=== PATIENT | female | born 1995 | race Caucasian/White ===

== ENCOUNTER → 2018-03-10 | Outpatient (CLI) | payer OTHER | LOC: M RAD 14:02 | DX: O34.82 Maternal care for other abnormalities of pelvic organs, second trimester (principal) | CPT/HCPCS: 72195 ==

== ENCOUNTER 2018-07-14 16:05 | Inpatient (IN) | payer OTHER ==
[~2018-07-14] VITALS: Ht 167.6 cm; Wt 71.9 kg
[2018-07-14] MEDS ORDERED: ZOLO50TA PO (16:29)
[2018-07-14] MEDS ORDERED: PRENTAB9 PO (16:29)
[2018-07-14] MEDS ORDERED: APAP500T10 PO (16:29)
[2018-07-14] MEDS ORDERED: LR 1,000 ML IV SCH (19:40)
[2018-07-14] MEDS: LR 1,000 ML IV SCH ×2 (19:40→22:47)
[2018-07-14] MEDS ORDERED: LACTATED RINGER'S 1000 ML IV STA (19:40)
[2018-07-14] MEDS ORDERED: OXYTOCIN DRIP 30 UNITS in APPROPRIATE DILUENT 1 EA IV SCH (19:45)
--- NOTE | 2018-07-14 20:05 | HPEPDOC ---
Obstetrical History & Physical General Date of Admission Jul 14, 2018 at 19:30 History of Present Illness 22 y/o at 39+6 with 2days of off/on significant bleedin g. Last night had several episodes of bleeding heavy enough to change sheets, have a towel under her. No LOF. Some irrerg ctx's. Checked 2 days ago and this afternoon and was 1 cm dilated. Pos FM. Preg c/b Left ovarian cyst, 14 cm, saw ONC, they rec'd waiting to address a few months after delivery unless , at which time if possible could be removed depending on exam and location, etc. Also stable depr/anxiety on Zoloft and has a counselor. Chief Complaint: Vaginal Bleeding Information Provided By: Patient Care Care: Good Care Dating Final EDC by: LMP, 1st trimester (US) Past Medical History Past Obstetrical History : Past Obstetrical History: [employer] History: No pertinent history Past Medical History Medical History Depression /anxiety GERD Mild gastroparesis sa a teen Surgical History: Other ([place] 2011) Family History Significant Family History: No pertinent family hx Social History Marital Status: Family situation: Spouse/partner home Psychosocial History: No pertinent psych hx * Smoker: non-smoker Alcohol: Denies Drugs: denies Abuse Violence Screening Have you been hit/kicked/slapp: No Have you been sexually assault: No Imunizations Tdap status: current Influenza Status: current Allergies Coded Allergies: No Known Allergies (Unverified , 07/14/18) Medications Scheduled Multivitamins/ ( 27-0.8 mg) 1 Tab Tab, 1 TAB PO DAILY Sertraline Hcl (Zoloft) 50 Mg Tab, 1 TAB PO DAILY Scheduled PRN Acetaminophen (APAP Extra Strength) 500 Mg Tab, 1,000 MG PO PRN PRN for CRAMPS Physical Examination Physical Examination GENERAL: Alert and oriented times three. ABDOMEN: Gravid and non-tender to touch. FETUS: Is vertex (VTX) by sterile vaginal examination (SVE), 3-/-2 EXTREMITIES: No edema. Laboratory Data 24H LABS Laboratory Tests 2 07/14/18 19:32: Serology Scanned Report Hepatitis B Testing Urine Culture: No Growth Pertinent Laboratoy Data Blood Type: O+ RBC Antibody Screen: Negative HIV: Negative Hepatitis B: Negative Hepatitis C: Unknown Rapid Plasma Reagin: Nonreactive Rubella: Immune Varicella: Immune Chlamydia/Gonorrhea: Negative Group B Streptococcus: Negative Glucose Tolerance Test: 88 Anatomy Ultrasound Placenta Location: Posterior Normal Anatomy: Yes Placenta Previa: No Assessment Variability: Moderate Accelerations: Positive Decelerations: None Tocometer Contractions: Yes Frequency: irregular Duration: greater than 60 seconds Strength: palpated as mild Assessment/Plan Assessment Favorable cx and VB for 2-3 days. Has changed over 3-4 hours from 1 cm to 3-4 cm. With her Hx of VB and 39+6, I rec augmentation and Dr Ulrich who is taking over care agrees. Plan Admit and orient. Order Clerk and consent. Diet: clears Group B Streptococcus (GBS) neg Labs and intravenous (IV) per unit protocol. Counseled on Pitocin and induction of labor (IOL). Lactated Ringers (LR): Bolus 1000 mL prior to epidural, then at 125 mL/hr. Anticipate normal spontaneous delivery () C-S as appropriate. Cystectomy/oophorectomy with likely based on findings. Sessions MD GARCIA,ROEL Nugent MD Jul 14, 2018 20:05
[2018-07-14 20:12] LABS: HEMATOCRIT 34.6 % (36.0-47.0); HEMOGLOBIN 11.2 g/dl (12.0-15.5); MEAN CORPUSCULAR HEMOGLOBIN 29.2 pg (27.0-33.0); MEAN CORPUSCULAR HGB CONC 32.4 g/dl (32.0-36.5); MEAN CORPUSCULAR VOLUME 90.3 fl (80.0-96.0); PLATELET COUNT, AUTOMATED 204 10^3/uL (150-450); RED BLOOD COUNT 3.83 10^6/uL (4.00-5.40); WHITE BLOOD COUNT 13.4 10^3/uL (4.0-10.0)
[2018-07-14 20:32] VITALS: BP 122/69
[2018-07-14 21:02] VITALS: BP 122/75
[2018-07-14 22:02] VITALS: BP 111/55
[2018-07-14 22:32] VITALS: BP 101/60
[2018-07-14 23:02] VITALS: BP 108/66
[2018-07-14 23:32] VITALS: BP 116/62
[2018-07-15] VITALS (47 sets, daily range): BP systolic 95–157; BP diastolic 52–84
[2018-07-15] MEDS ORDERED: PROMETHAZINE INJ 25 MG/ML VIAL (J2550) IV ONE (01:45)
[2018-07-15] MEDS ORDERED: BUTORPHANOL 2 MG/ML INJ (J0595) IV ONE (01:45)
[2018-07-15] MEDS ORDERED: FENTANYL 2MCG/ML ROPIVACAINE 0.2% IN 0.9% NACL 100ML IVBAG As Ordered ONE (03:17)
[2018-07-15] MEDS ORDERED: ePHEDrine SULFATE 25 MG/5 ML(5MG/ML) SYRINGE IV PRN (04:05)
[2018-07-15] MEDS ORDERED: EPIDURAL COMMENT XX SCH (04:05)
[2018-07-15] MEDS ORDERED: LACTATED RINGER'S 1000 ML IV PRN (04:05)
[2018-07-15] MEDS ORDERED: NALOXONE INJ 0.4 MG/1 ML VIAL (J2310) IV PRN (04:05)
[2018-07-15] MEDS ORDERED: ONDANSETRON 4MG/2ML VIAL (J2405) IV PRN ×2 (04:05→10:15)
[2018-07-15] MEDS ORDERED: EPIDURAL/PCA KEYS XX PRN (04:05)
[2018-07-15] MEDS ORDERED: FENTANYL/ROPIVACAINE/NACL BAG 100 ML EPIDURAL SCH (04:05)
[2018-07-15] MEDS ORDERED: diphenhydrAMINE INJ 50MG/ML VIAL (J1200) IV PRN (04:05)
[2018-07-15] MEDS ORDERED: REFRIGERATOR IV KEYS XX PRN (04:05)
--- NOTE | 2018-07-15 06:44 | IPNPDOC ---
Text Note Date of Service The patient was seen on 07/15/18. NOTE Intrapartum Note Ermelinda is a 22yo with SIUP at 40w0d undergoing augmentation of labor for some significant likely cervical bleeding, she made change on her own from to yesterday and then pitocin was started. Pitocin was titrated up overnight, pt received one dose of stadol for pain control, and then later she finally received an epidural. She is currently comfortable and doing well. Vitals wnl, afebrile SCE: 9/C/-1, AROM performed with clear fluid noted- well tolerated, bleeding noted prior on towel normal in amount for "show" Cat I-II FHRT for periods of min-mod richard, +accels, -decels [place]: ctx q1-2min Will continue to closely monitor Continue pitocin Will plan to recheck in 1-2hr or earlier as indicated Safe to proceed Dr. Nannette Ulrich MD VS,Saud, I+O VS, Saud, I+O Laboratory Tests 07/14/18 19:49 Red Blood Count 3.83 L, Mean Corpuscular Volume 90.3, Mean Corpuscular Hemoglobin 29.2, Mean Corpuscular Hemoglobin Concent 32.4, Red Cell Distribution Width 13.8 Vital Signs Date Time Temp Pulse Resp B/P (MAP) Pulse Ox O2 Delivery O2 Flow Rate FiO2 07/15/18 04:53 70 101/56 (71) 07/15/18 04:13 97.0 07/15/18 01:48 18 Nannette Ulrich MD Jul 15, 2018 06:44
--- NOTE | 2018-07-15 07:44 | IPNPDOC ---
Text Note Date of Service The patient was seen on 07/15/18. NOTE Acceptance of care. Ermelinda is a 22 yo at 40+0 weeks who was admitted yesterday evening for induction / augmentation of labor for periods of significant vaginal bleeding over the last 2-3 days. Cervix was favorable on admission and she was started on pitocin. AROM of clear fluid was done at ~0630 this AM. She has progressed well to 9/C/-1 as of that exam by Dr. Ulrich. FHR mostly Cat I with moderate variability, +accels. Some Periods of Cat II due to minimal variability, but no decels. Overall reassuring tracing. Ermelinda is progressing well. Her is complicated by a large, ~14cm ovarian mass on the left side. Should she require delivery for any reason I would consider cystectomy / oophorectomy at that time if feasible and safe. Will recheck in 1-2 hours or sooner as needed. All patient questions answered. DO Pranav VS,Saud, I+O VS, Saud, I+O Laboratory Tests 07/14/18 19:49 Red Blood Count 3.83 L, Mean Corpuscular Volume 90.3, Mean Corpuscular Hemoglobin 29.2, Mean Corpuscular Hemoglobin Concent 32.4, Red Cell Distribution Width 13.8 Vital Signs Date Time Temp Pulse Resp B/P (MAP) Pulse Ox O2 Delivery O2 Flow Rate FiO2 07/15/18 06:39 97.6 77 106/70 (82) 07/15/18 01:48 18 HALEIGH TURNER DO Jul 15, 2018 07:43
[2018-07-15] MEDS: LR 1,000 ML IV SCH (08:47)
[2018-07-15] MEDS ORDERED: OXYTOCIN DRIP 30 UNITS in APPROPRIATE DILUENT 1 EA IV SCH (10:06)
[2018-07-15] MEDS ORDERED: ACETAMINOPHEN 500 MG TAB PO PRN (10:15)
[2018-07-15] MEDS ORDERED: RHOGAM 300 MCG (1500 IU) INJ (J2790) IM SCH (10:15)
[2018-07-15] MEDS ORDERED: MEASLES,MUMPS,RUBELLA VACCINE INJ (MMR-II) (90707) SC SCH (10:15)
[2018-07-15] MEDS ORDERED: DOCUSATE SODIUM 100 MG CAP PO PRN (10:15)
[2018-07-15] MEDS ORDERED: DIBUCAINE 1% OINTMENT 30GM TOP PRN (10:15)
--- NOTE | 2018-07-15 10:24 | DNPDOC ---
[facility] Delivery Note Delivery Note DATE OF DELIVERY: 15Jul2018 at ~0930 PREDELIVERY DIAGNOSIS: 40+0 weeks' gestation and labor. POST DELIVERY DIAGNOSIS: Delivered, calcified placenta and partial placental abruption PROCEDURE: Spontaneous vaginal delivery METALIZING MACHINE OPERATOR: Dr. Rock ANESTHESIA: Neuraxial. ESTIMATED BLOOD LOSS: 300 mL. FINDINGS: 7 pound 13 ounce male , Score 9/9, nuchal cord times X1. DELIVERY SUMMARY: Patient was C/C/+2 and started pushing. She pushed well. The bed was broken down and she was prepped for delivery. The delivered in DAMEON position with restitution to ROT. The left anterior shoulder delivered with gentle guidance followed easily by the remainder of the body. There was a loose nuchal cord that was delivered through and reduced manually. The infant was dried and stimulated on the field and a bulb suction was used. The had a vigorous cry and was placed on the maternal abdomen. 3rd stage was completed with gentle traction on the cord and it was productive of an intact placenta. There was significant trailing placental membranes. The placenta also appeared calcified and with an area consistent with a 25% abruption. A uterine sweep was performed in order to confirm all trailing membranes were removed along with any placental fragments. The uterus firmed with massage and pitocin was administe red IV bolus. Inspection of the vagina, perineum, cervix, and labia revealed a midline 2nd degree laceration and bilateral labial lacerations. These were repaired with 3-0 vicryl suture in the usual fashion. There was excellent cosmesis and hemostasis after the repair. A bedside TAUS was performed and the uterine stripe was appropriately thick at 1.8cm at the thickest portion and there was no evidence of retained products. The fundus was palpated again and was firm. Sponge, instrument, and needle counts were correct X2. Mother stable when I left the room. DO JOHNNY Rock CHRISTOPHER J. DO Jul 15, 2018 10:24
[2018-07-16 05:59] VITALS: BP 104/51
--- NOTE | 2018-07-16 07:20 | IPNPDOC ---
Progress Note Date of Service: Jul 16, 2018 Progress Note 22 yo G1 now P1 PPD#1 s/p uncomplicated yesterday ~0920. Required uterine sweep due to trailing membranes and received one dose of Ancef. Ms. To is doing well this morning. She is ambulating, voiding, tolerating a regular diet, and has minimal lochia. She is ambulating without dizziness, SOB, chest pain. She denies any n/v. Vitals - VSS, normotensive, afebrile, non tachycardic General - AAOX3, sitting up in bed, NAD Abdomen - Fundus firm at U-1. No tenderness Extremities - No edema UO - Appropriate Ms. To is doing well this AM. Continue to encourage ambulation and today. Continue regular diet and routine care. Anticipate discharge home tomorrow. Will require follow up regarding ovarian mass. DO Pranav VS, I&O, 24H, Fishbone Vital Signs/I&O Vital Signs Date Time Temp Pulse Resp B/P (MAP) Pulse Ox O2 Delivery O2 Flow Rate FiO2 07/16/18 05:59 99.2 75 16 104/51 (68) 07/15/18 12:40 99 I&O- Last 24 Hours up to 6 AM 07/16/18 06:00 Intake Total 982.7 ml Output Total 2350 ml Balance -1367.3 ml HALEIGH TURNER DO Jul 16, 2018 07:20
[2018-07-16] MEDS: PRENATAL VITAMINS CHEWABLE TABLET PO SCH (08:31)
[2018-07-16] MEDS ORDERED: ANUSOL HC CREAM 30GM TOP PRN (10:45)
[2018-07-16] MEDS: IBUPROFEN 800 MG TAB PO PRN (15:00)
[2018-07-16 17:53] VITALS: BP 104/50
[2018-07-17 06:00] VITALS: BP 113/64
--- NOTE | 2018-07-17 08:10 | DS.PDOC ---
Discharge Summary General Date of Admission Jul 14, 2018 at 19:30 Date of Discharge [id number] Discharge Summary ADMITTING DIAGNOSES: Augmentation of labor for bleeding DISCHARGE DIAGNOSES: Same, HOSPITAL COURSE: Admitted and delivery uncomplicated, . course uncomplicated. DISCHARGE MEDICATIONS: Motrin, Lanolin DISCHARGE INSTRUCTIONS: Nothing in the vagina for 6 weeks. F/U in OBGYN clinic in 6-8 weeks. Sessions Vital Signs/I&Os Vital Signs Date Time Temp Pulse Resp B/P (MAP) Pulse Ox O2 Delivery O2 Flow Rate FiO2 07/17/18 06:00 98.8 85 16 113/64 (80) 07/15/18 12:40 99 Discharge Medications Scheduled Multivitamins/ ( 27-0.8 mg) 1 Tab Tab, 1 TAB PO DAILY, (Reported) Sertraline Hcl (Zoloft) 50 Mg Tab, 1 TAB PO DAILY, (Reported) Scheduled PRN Acetaminophen (APAP Extra Strength) 500 Mg Tab, 1,000 MG PO PRN PRN for CRAMPS, (Reported) Allergies Coded Allergies: No Known Allergies (Unverified , 07/14/18) SESSIONSROEL MD Jul 17, 2018 08:10
--- NOTE | 2018-07-17 08:12 | IPNPDOC ---
Text Note Date of Service The patient was seen on 07/17/18. NOTE PPD2 States feeling well, pain controlled with prescribed meds. Baby bonding and feeding well. No heavy VB. Lochia slowing. Ambulatory. Tolerating PO without issues. Voiding spont. No CP/LP/SOB. VSSAF NAD A&O LE no C/C/E Ut at U-2, firm a/p: Doing well. Cont routine care. D/C today. Sessions VS,Saud, I+O VSSaud, I+O Vital Signs Date Time Temp Pulse Resp B/P (MAP) Pulse Ox O2 Delivery O2 Flow Rate FiO2 07/17/18 06:00 98.8 85 16 113/64 (80) 07/15/18 12:40 99 SESSIONS,ROEL Nugent MD Jul 17, 2018 08:12
[2018-07-17] MEDS: PRENATAL VITAMINS CHEWABLE TABLET PO SCH (09:25)
[2018-07-17] MEDS: IBUPROFEN 800 MG TAB PO PRN (09:32)
[2018-07-17] MEDS ORDERED: COLA100C5 PO (09:39)
[2018-07-17] MEDS ORDERED: MAPA500T2 PO (09:39)
[2018-07-17] MEDS ORDERED: IBUP-1114 PO (09:39)
== END 2018-07-17 14:25 | disposition home or self-care (01) | DRG 807 ==
LOC: M LDO 16:05 → M LDI 19:30 → M OBS 07-15 12:38
PROVIDERS: ADMIT Obstetrics & Gynecology; ATTEND Obstetrics & Gynecology
PROC: 10E0XZZ Delivery of Products of Conception, External Approach (ICD-10-PCS; principal; 2018-07-15)
PROC: 0KQM0ZZ Repair Perineum Muscle, Open Approach (ICD-10-PCS; 2018-07-15)
PROC: 0HQ9XZZ Repair Perineum Skin, External Approach (ICD-10-PCS; 2018-07-15)
PROC: 10907ZC Drainage of Amniotic Fluid, Therapeutic from Products of Conception, Via Natural or Artificial Opening (ICD-10-PCS; 2018-07-15)
DX: O45.8X3 Other premature separation of placenta, third trimester (principal); Z37.0 Single live birth; O48.0 Post-term pregnancy; Z3A.40 40 weeks gestation of pregnancy; O69.82X0 Labor and delivery complicated by other cord entanglement, without compression, not applicable or unspecified; O70.1 Second degree perineal laceration during delivery; O70.0 First degree perineal laceration during delivery; N83.292 Other ovarian cyst, left side; O34.83 Maternal care for other abnormalities of pelvic organs, third trimester

== ENCOUNTER → 2018-08-09 | Outpatient (CLI) | payer OTHER ==
[~2018-08-09] MED LIST: APAP500T10 PO; COLA100C5 PO; IBUP-1114 PO; MAPA500T2 PO; PRENTAB9 PO; ZOLO50TA PO
--- NOTE | 2018-08-10 05:00 | REP ---
Clinical: Left ovarian cyst . Technique: Transabdominal pelvic ultrasound with color Doppler evaluation of the ovaries. Findings: Bladder is incompletely distended but grossly normal. Normal anteverted uterus measures 8.3 x 5.1 x 8.2 cm . The endometrial complex measures 6.4 mm thickness. No discrete uterine or endometrial abnormalities are appreciated. Right ovary measures 3.6 x 2.0 x 1.7 cm with 1.3 cm dominant follicle ; right ovary RI = 0.53 . Left ovary is enlarged and measures 8.8 x 6.5 x 9.7 cm including 6.7 x 5.4 x 9.1 cm complex cyst with internal debris ; the ovary RI = 0.62. No pelvic fluid or adnexal mass lesion . Impression: 1. Normal uterus and right ovary. 2. 9.1 cm complex left ovarian cyst relatively similar to findings on prior MRI dated 03/02/2018. Electronically Signed by Macho Wayne MD 08/10/2018 04:51 A
== END ==
LOC: M RAD 13:02
PROVIDERS: ATTEND Obstetrics & Gynecology
DX: N83.202 Unspecified ovarian cyst, left side (principal)

== ENCOUNTER 2018-08-20 13:00 | Inpatient (IN) | payer OTHER ==
[~2018-08-20] VITALS: Ht 167.6 cm; Wt 63.2 kg
[2018-08-20] MEDS ORDERED: ADDE30CA3 PO (13:09)
[2018-08-20 13:37] LABS: HEMATOCRIT 39.6 % (36.0-47.0); HEMOGLOBIN 12.4 g/dl (12.0-15.5); MEAN CORPUSCULAR HEMOGLOBIN 29.2 pg (27.0-33.0); MEAN CORPUSCULAR HGB CONC 31.3 g/dl (32.0-36.5); MEAN CORPUSCULAR VOLUME 93.4 fl (80.0-96.0); PLATELET COUNT, AUTOMATED 376 10^3/uL (150-450); RED BLOOD COUNT 4.24 10^6/uL (4.00-5.40); WHITE BLOOD COUNT 8.4 10^3/uL (4.0-10.0)
[2018-08-20 14:01] LABS: HCG, SERUM QUALITATIVE NEGATIVE (NEGATIVE)
[2018-08-20 14:05] LABS: AMPHETAMINES LEVEL URINE NEGATIVE (NEGATIVE); BARBITURATES URINE NEGATIVE (NEGATIVE); BENZODIAZEPINES URINE NEGATIVE (NEGATIVE); CANNABINOIDS URINE NEGATIVE (NEGATIVE); COCAINE METABOLITE URINE NEGATIVE (NEGATIVE); METHADONE URINE NEGATIVE (NEGATIVE); OPIATES URINE NEGATIVE (NEGATIVE); PHENCYCLIDINE URINE NEGATIVE (NEGATIVE)
[2018-08-20 14:12] LABS: BLOOD UREA NITROGEN 6 MG/DL (7-18); CALCIUM LEVEL 9.3 MG/DL (8.5-10.1); CARBON DIOXIDE LEVEL 30 MEQ/L (21-32); CHLORIDE LEVEL 106 MEQ/L (98-107); CREATININE FOR GFR 0.65 MG/DL (0.55-1.30); GLOMERULAR FILTRATION RATE > 60.0 (>60); GLUCOSE, FASTING 92 MG/DL (70-100); SODIUM LEVEL 141 MEQ/L (136-145)
[2018-08-20 14:13] LABS: ACETAMINOPHEN LEVEL < 2.0 UG/ML (10.0-30.0); ALBUMIN 3.9 GM/DL (3.2-5.2); ALT/SGPT 28 U/L (12-78); BILIRUBIN,DIRECT < 0.1 MG/DL (0.0-0.2); BILIRUBIN,TOTAL 0.3 MG/DL (0.2-1.0); ETHYL ALCOHOL (ETHANOL) < 0.003 % (0.000-0.010); SALICYLATE LEVEL < 1.7 MG/DL (5.0-30.0); TOTAL PROTEIN 7.9 GM/DL (6.4-8.2)
[2018-08-20] MEDS ORDERED: MOM 30ML SUSPENSION UDC PO PRN (16:00)
[2018-08-20] MEDS ORDERED: MAALOX 30 ML SUSP *UDC PO PRN (16:00)
[2018-08-20] MEDS ORDERED: ACETAMINOPHEN TAB 650MG DOSE (2X325MG) PO PRN (16:00)
[2018-08-20 17:27] VITALS: BP 119/69
[2018-08-20 18:00] VITALS: BP 122/74
[2018-08-20] MEDS: traZODone 50 MG TAB PO PRN (22:06)
[2018-08-21 06:41] VITALS: BP 118/55
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
[2018-08-21] MEDS ORDERED: hydrOXYzine 25 MG TAB PO PRN (11:15)
[2018-08-21] MEDS ORDERED: VENLAFAXINE **XR** 37.5 MG CAPSULE PO ONE (11:15)
[2018-08-21 18:16] VITALS: BP 104/53
[2018-08-22 06:33] VITALS: BP 105/58
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
[2018-08-22] MEDS: VENLAFAXINE **XR** 37.5 MG CAPSULE PO SCH (10:02)
[2018-08-22] MEDS: hydrOXYzine 10 MG TAB PO PRN (11:53)
--- NOTE | 2018-08-22 15:39 | HPE ---
DATE OF ADMISSION: 08/22/2018 PRIMARY CARE PROVIDER: [facility]. HISTORY OF PRESENT ILLNESS: Patient is a 22-year-old female with past medical history significant for depression, gastroesophageal reflux disease (GERD), mild gastroparesis, also admitted to Inpatient Mental Health Unit (IM) on 08/20/2018 for depression and suicidal ideation. Hospitalist team notified 08/22/2018 for history and physical (H and P). During the encounter, patient denies any acute distress. Patient had a vaginal delivery 07/15/2018. According to the patient, her delivery was complicated by partial placental abruption. Patient stated she has been having greenish/yellowish vaginal secretion for the past two weeks. Patient has some mild discomfort of the lower abdomen in the past two weeks. Denies any fever or chills. Denies any acute complaints. Patient had a medical history of mild gastroparesis and gastroesophageal reflux disease. Patient had a Layo procedure in 2011 for both conditions. Patient states since then, patient does not have any gastrointestinal (GI) symptoms. Patient is currently actively following with her DIRECTOR WRITING in [place] in [place] for her left ovarian cyst. According to the patient, the largest diameter is 14 cm. PAST MEDICAL HISTORY: 1. Depression. 2. Gastroesophageal reflux disease (GERD). 3. Mild gastroparesis. 4. Left ovarian cyst. SURGICAL HISTORY: Layo procedure in 2011. SOCIAL HISTORY: Denies smoking. Drinks wine 2-3 times weekly. Denies any current recreational drug usage. ALLERGIES: No known drug allergies. REVIEW OF SYSTEMS: GENERAL: Denied any fever or chills. HEENT: Denied vision changes, auditory changes. CARDIOVASCULAR: Denied any chest pain or palpitations. RESPIRATORY: Denied any shortness of breath or cough or sputum production. GASTROINTESTINAL (GI): Denied nausea, vomiting, abdominal pain or diarrhea. GENITOURINARY (): Patient had a vaginal delivery 07/15/2018. Patient complained about two weeks of vaginal discharge. OBJECTIVE: VITAL SIGNS: Temperature 98.2, pulse 63, respirations 23, blood pressure 105/58. GENERAL: No signs of acute distress. Alert and oriented times three. HEENT: Normocephalic, atraumatic. Extraocular muscles grossly intact. Wears corrective lenses. CARDIOVASCULAR: Positive S1, S2. Regular rate. LUNGS: Clear to auscultation bilaterally. ABDOMEN: There is some very mild discomfort at the lower abdomen near the suprapubic area upon palpation. Abdomen is soft. Bowel sounds present. EXTREMITIES: No edema. NEUROLOGICAL: Sensation to fine touch grossly intact. Muscle strength 5/5. LABORATORY DATA: WBC 8.4, hemoglobin 12.4, hematocrit 39.6, platelet count 376. Sodium 141, potassium 4, chloride 106, carbon dioxide 30, BUN 6, creatinine 0.66, GFR greater than 60, fasting glucose 92, calcium 9.3. Total bilirubin 0.3, direct bilirubin less than 0.1, AST 24, ALT 28, alkaline phosphatase 88, total protein 7.9, albumin 3.9. TSH 1.43. HCG negative. Urine toxicology is negative. ASSESSMENT AND PLAN: 1. Psychiatric. Patient with suicidal ideation. Patient is admitted to Inpatient Mental Health Unit ([facility]). Psychiatric management per psychiatric team. 2. Gastroesophageal reflux disease with a history of mild gastroparesis. Patient stated she had a Layo procedure in 2011. Since the procedure, patient did not have any recurrence of gastroesophageal reflux disease (GERD) or gastroparesis, and patient has not been on any reflux medications. 3. Vaginal discharge. Patient had a vaginal delivery on 07/15/2018. The delivery was complicated by partial placental abruption. According to the records, patient had a temperature of 100.2 yesterday approximately at 6 o'clock. Temperature resolved spontaneously without any medications or treatment. Patient denied any fever or chills. Patient does not have any elevated white count. Patient's case was discussed with her DIRECTOR WRITING physician, Dr. Ibarra. We are going to continue to monitor. After patient's discharge from [facility], patient should have an DIRECTOR WRITING appointment within one week for a close followup. 4. Deep venous thrombosis (DVT) prophylaxis. Encourage ambulation. Medicine service will sign out at this moment. Please do not hesitate to contact us if patient requires further medical assistance.
[2018-08-22 17:31] VITALS: BP 95/50
[2018-08-23 06:24] VITALS: BP 111/55
[2018-08-23] MEDS: VENLAFAXINE **XR** 37.5 MG CAPSULE PO SCH (09:01)
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
[2018-08-23] MEDS: hydrOXYzine 10 MG TAB PO PRN (14:40)
[2018-08-23 18:00] VITALS: BP 105/71
[2018-08-23] MEDS: traZODone 50 MG TAB PO PRN (20:59)
[2018-08-24 06:37] VITALS: BP 108/55
[2018-08-24] MEDS: VENLAFAXINE **XR** 37.5 MG CAPSULE PO SCH (08:15)
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
[2018-08-24 18:00] VITALS: BP 124/56
[2018-08-24] MEDS: traZODone 50 MG TAB PO PRN (22:34)
[2018-08-25 07:10] VITALS: BP 104/55
[2018-08-25] MEDS: VENLAFAXINE **XR** 37.5 MG CAPSULE PO SCH (08:17)
[2018-08-25] MEDS ORDERED: VENL37.598 PO (09:14)
[2018-08-25] MEDS ORDERED: HYDR-643 PO (09:14)
[2018-08-25] MEDS ORDERED: TRAZO50TA PO (09:14)
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
== END 2018-08-25 09:45 | disposition home or self-care (01) | DRG 880 ==
LOC: M ED 13:00 → M ED INP 17:20 → M PSY 17:25
PROVIDERS: ADMIT Psychiatry & Neurology Psychiatry; ATTEND Psychiatry & Neurology Psychiatry
DX: F41.1 Generalized anxiety disorder (principal); F32.9 Major depressive disorder, single episode, unspecified; F43.10 Post-traumatic stress disorder, unspecified; Z79.899 Other long term (current) drug therapy; K21.9 Gastro-esophageal reflux disease without esophagitis